=== PATIENT | female | born 1985 | race Caucasian/White ===

== ENCOUNTER → 2018-08-07 | Outpatient (CLI) | payer BC ==
[2018-08-07 09:48] LABS: ALANINE AMINOTRANSFERASE 12 U/L (0-55); ALBUMIN 4.5 GM/DL (3.2-4.5); ALKALINE PHOSPHATASE 91 U/L (40-136); BILIRUBIN,TOTAL 0.4 MG/DL (0.1-1.0); BUN/CREATININE RATIO 20; CALCIUM 9.3 MG/DL (8.5-10.1); CARBON DIOXIDE 25 MMOL/L (21-32); CHLORIDE 102 MMOL/L (98-107); GFR ESTIMATED > 60; GLUCOSE 96 MG/DL (70-105); POTASSIUM 4.3 MMOL/L (3.6-5.0); SODIUM 140 MMOL/L (135-145)
[2018-08-07 14:56] LABS: CHOLESTEROL 157 MG/DL (< 200); HDL CHOLESTEROL 44 MG/DL (40-60); TRIGLYCERIDES 95 MG/DL (<150); VLDL CHOLESTEROL 19 MG/DL (5-40)
== END ==
LOC: LAB FS 08:10
PROVIDERS: ATTEND Family Medicine
DX: Z00.00 Encounter for general adult medical examination without abnormal findings (principal)
CPT/HCPCS: 36415; 80053; 80061; 83036

== ENCOUNTER → 2019-12-04 | Outpatient (CLI) | payer BC ==
[2019-12-04 10:16] LABS: HEMATOCRIT 38 % (35-52); HEMOGLOBIN 12.3 G/DL (11.5-16.0); MEAN CORPUSCULAR HEMOGLOBIN 28 PG (25-34); MEAN CORPUSCULAR HGB CONC 33 G/DL (32-36); MEAN CORPUSCULAR VOLUME 86 FL (80-99); MEAN PLATELET VOLUME 9.5 FL (7.4-10.4); PLATELET COUNT 300 10^3/uL (130-400); WHITE BLOOD COUNT 9.2 10^3/uL (4.3-11.0)
[2019-12-04 10:17] LABS: BASOPHILS % (AUTO) 0 % (0-10); EOSINOPHILS % (AUTO) 0 % (0-10); LYMPHOCYTES # (AUTO) 1.6 X 10^3 (1.0-4.0); LYMPHOCYTES % (AUTO) 17 % (12-44); MONOCYTES # (AUTO) 0.4 X 10^3 (0.0-1.0); MONOCYTES % (AUTO) 4 % (0-12); NEUTROPHILS # (AUTO) 7.2 X 10^3 (1.8-7.8); NEUTROPHILS % (AUTO) 78 % (42-75)
== END ==
LOC: LAB FS 09:47
PROVIDERS: ATTEND Family Medicine
DX: Z34.81 Encounter for supervision of other normal pregnancy, first trimester (principal); Z3A.00 Weeks of gestation of pregnancy not specified
CPT/HCPCS: 36415; 80055; 86703; 86762; 87088

== ENCOUNTER → 2020-01-15 | Outpatient (CLI) | payer BC | LOC: LAB FS 16:42 | PROVIDERS: ATTEND Family Medicine | DX: Z34.92 Encounter for supervision of normal pregnancy, unspecified, second trimester (principal) | CPT/HCPCS: 36415; 82105; 84702; 86336 ==

== ENCOUNTER → 2020-02-17 | Outpatient (CLI) | payer BC ==
--- NOTE | 2020-02-18 08:40 | Diagnostic Imaging Report ---
INDICATION: survey. TECHNIQUE: Multiple real-time grayscale images were obtained over the gravid uterus. COMPARISON: None. FINDINGS: There are no prior studies available for comparison. There is a single live fetus in breech presentation. heart motion was noted and a rate of 149 BPM was recorded. There were no abnormalities identified. The growth parameters are fairly uniform. The placenta is anterior and there is no previa. The amniotic fluid volume is within normal limits. The ovaries were not well-visualized. Biometrical measurements are as follows: Biparietal 5.38 cm, age 22 weeks 3 days. Head circumference 19.80 cm, age 22 weeks 0 days. Abdominal circumference 17.01 cm, age 22 weeks 0 days. Femur length 3.99 cm, age 23 weeks 0 days. Sonographic estimate age: 22 weeks 3 days. Sonographic estimated date of delivery: 06/19/2020. Estimated Weight: 496 gm (+/- 73 gm). LMP percentile: 92%. heart rate: 149 beats per minute. number: 1 of 1. IMPRESSION: 1. There is a single live fetus approximately 22 weeks 3 days gestation +/- 2 weeks. EDC is 06/19/2020. 2. There were no abnormalities identified. 3. growth parameters are fairly uniform. Dictated by: Dictated on workstation # [id number]
== END ==
LOC: RAD FS 15:24
PROVIDERS: ATTEND Family Medicine
DX: Z34.92 Encounter for supervision of normal pregnancy, unspecified, second trimester (principal); Z3A.22 22 weeks gestation of pregnancy
CPT/HCPCS: 76805

== ENCOUNTER → 2020-04-06 | Outpatient (CLI) | payer BC ==
[2020-04-06 17:36] LABS: MEAN PLATELET VOLUME 9.2 FL (7.4-10.4)
== END ==
LOC: LAB FS 16:31
PROVIDERS: ATTEND Family Medicine
DX: Z34.92 Encounter for supervision of normal pregnancy, unspecified, second trimester (principal); Z3A.00 Weeks of gestation of pregnancy not specified
CPT/HCPCS: 36415; 82950; 85027; 86780

== ENCOUNTER 2020-06-23 19:03 | Inpatient (IN) | payer BC ==
[2020-06-23] VITALS (8 sets, daily range): BP systolic 133–181; BP diastolic 74–95
[~2020-06-23] VITALS: Ht 157.5 cm; Wt 121.2 kg
[2020-06-23] MEDS ORDERED: OMEP20TA33 PO (19:37)
[2020-06-23] MEDS ORDERED: PREN-102 PO (19:37)
[2020-06-23] MEDS ORDERED: MINERAL OIL CONCENTRATE 99.9% 15 ML UDC TOP PRN (19:45)
[2020-06-23] MEDS ORDERED: NS IV 500 ML 500 ML IV SCH (19:45)
[2020-06-23] MEDS: D5 LR IV SOLUTION 1,000 ML IV SCH (20:07)
[2020-06-23 20:22] LABS: BASOPHILS % (AUTO) 0 % (0-10); EOSINOPHILS % (AUTO) 0 % (0-10); HEMATOCRIT 35 % (35-52); HEMOGLOBIN 11.6 g/dL (11.5-16.0); LYMPHOCYTES # (AUTO) 1.7 10^3/uL (1.0-4.0); LYMPHOCYTES % (AUTO) 16 % (12-44); MEAN CORPUSCULAR HEMOGLOBIN 28 pg (25-34); MEAN CORPUSCULAR HGB CONC 33 g/dL (32-36); MEAN CORPUSCULAR VOLUME 85 fL (80-99); MEAN PLATELET VOLUME 10.7 fL (9.0-12.2); MONOCYTES # (AUTO) 0.5 10^3/uL (0.0-1.0); MONOCYTES % (AUTO) 5 % (0-12); NEUTROPHILS # (AUTO) 8.7 10^3/uL (1.8-7.8); NEUTROPHILS % (AUTO) 79 % (42-75); PLATELET COUNT 281 10^3/uL (130-400)
[2020-06-24] VITALS (53 sets, daily range): BP systolic 112–166; BP diastolic 58–94
[2020-06-24] MEDS ORDERED: HYDROmorphone 2 MG/ML VIAL (DILAUDID) ONE (00:55)
[2020-06-24] MEDS ORDERED: HYDROmorphone 2 MG/ML VIAL (DILAUDID) IVP ONE (01:15)
[2020-06-24] MEDS: D5 LR IV SOLUTION 1,000 ML IV SCH (03:39)
--- NOTE | 2020-06-24 08:27 | History & Physical-OB ---
OB - Chief Complaint & HPI Date/Time Date of Admission: Date of Admission: June 23, 2020 at 19:03 Date seen by a Provider: June 24, 2020 Time Seen by a Provider: 08:15 Chief Complaint/History OB-Reason for Admission/Chief: Induction of Labor Hx : 2 Hx Para: 1 Expected Date of Delivery: June 27, 2020 Gestational Age in Weeks: 39 Gestational Age in Days: 3 Admission Nurse Assessment Rev: Yes Other O pos Antibody neg RI RPR NR HBsAg NR HIV NR GC neg GBS neg Allergies and Home Medications Allergies Coded Allergies: No Known Drug Allergies (Unverified , 06/23/20) Home Medications Omeprazole Magnesium 20 Mg Tablet.dr, 40 MG PO DAILY, (Reported) Last Action: New Order Vits #93/Iron Fum/FA 1 Each Tablet, 1 EACH PO DAILY, (Reported) Last Action: New Order Patient Home Medication List Home Medication List Reviewed: Yes OB - History Hx of Present Care: Yes Ultrasounds: Normal mid trimester US Obstetrical Complications: None Medical Complications: None Patient Past Medical History n/a OB - Admission Exam Physical Exam Vitals: Vital Signs 06/24/20 06/24/20 03:40 06:10 Temp 36.0 Pulse 69 Resp 16 B/P (MAP) 156/83 (107) HEENT: NCAT Heart: Rhythm Normal Lungs: Clear Abdomen: Gravid Extremities: Normal Reflexes: Normal Cervical Dilatation: 1cm Effacement: 75% Station: -1 Membranes: Intact Heart Rate: 130's Accelerations: Accelerations Present Decelerations: No Decelerations Short Term Variability: Present Supervisor Yard Variability: Average (6-25) Contractions on Admission: 6-10 Minutes Apart Intensity: Mild Labs Laboratory Tests Test 06/23/20 20:00 Range/Units White Blood Count 11.0 4.3-11.0 10^3/uL Red Blood Count 4.16 3.80-5.11 10^6/uL Hemoglobin 11.6 11.5-16.0 g/dL Hematocrit 35 35-52 % Mean Corpuscular Volume 85 80-99 fL Mean Corpuscular Hemoglobin 28 25-34 pg Mean Corpuscular Hemoglobin Concent 33 32-36 g/dL Red Cell Distribution Width 14.0 10.0-14.5 % Platelet Count 281 130-400 10^3/uL Mean Platelet Volume 10.7 9.0-12.2 fL Immature Granulocyte % (Auto) 1 % Neutrophils (%) (Auto) 79 H 42-75 % Lymphocytes (%) (Auto) 16 12-44 % Monocytes (%) (Auto) 5 0-12 % Eosinophils (%) (Auto) 0 0-10 % Basophils (%) (Auto) 0 0-10 % Neutrophils # (Auto) 8.7 H 1.8-7.8 10^3/uL Lymphocytes # (Auto) 1.7 1.0-4.0 10^3/uL Monocytes # (Auto) 0.5 0.0-1.0 10^3/uL Eosinophils # (Auto) 0.0 0.0-0.3 10^3/uL Basophils # (Auto) 0.0 0.0-0.1 10^3/uL Immature Granulocyte # (Auto) 0.1 0.0-0.1 10^3/uL OB - Assessment/Plan/Diagnosis Assessment Assessment: induction of labor Admission Dx 34 yo @ 39 weeks Elective IOL GBS neg Admission Status: Inpatient Order (span 2 midnights) Reason for Inpatient Admission: Induction of labor at 39 weeks Plan Plan: Induction Induction Method: per Misoprostol Protocol NICOLE LEHMAN DO June 24, 2020 08:27
[2020-06-24] MEDS ORDERED: fentaNYL 2 mcg/ml BUPIVA 0.125 100 ML ONE (08:29)
[2020-06-24] MEDS ORDERED: OXYTOCIN PRE-MIX DRIP 500 ML IV ONE (08:37)
[2020-06-24] MEDS ORDERED: BUPIVACAINE 0.25% 30 ML (SENSORCAINE) VIAL ONE (08:43)
[2020-06-24] MEDS ORDERED: fentaNYL INJ 100 MCG/2 ML AMP ONE (08:43)
[2020-06-24] MEDS ORDERED: LIDOCAINE PF 2% 5 ML (XYLOCAINE) VIAL ONE (08:43)
[2020-06-24] MEDS ORDERED: OXYTOCIN PRE-MIX DRIP 500 ML IV SCH ×2 (08:45→16:15)
[2020-06-24] MEDS ORDERED: NALOXONE 0.4 MG/ML 1 ML (NARCAN) VIAL IV PRN (09:00)
[2020-06-24] MEDS ORDERED: EPIDURAL (fentaNYL 2 MCG/ML BUPIVA 0.125%)100 ML BAG EPI PRN (09:00)
[2020-06-24] MEDS ORDERED: LACTATED RINGERS 1,000 ML IV SCH (09:00)
[2020-06-24] MEDS ORDERED: ONDANSETRON 4 MG/2 ML (SDV) Z0FRAN IV PRN (09:00)
[2020-06-24] MEDS ORDERED: diphenhydrAMINE 50 MG/ML INJ (BENADRYL) IV PRN (09:00)
[2020-06-24 11:40] LABS: BILIRUBIN,URINE NEGATIVE (NEGATIVE); CLARITY,URINE TURBID; COLOR,URINE YELLOW; GLUCOSE, URINE (UA) NEGATIVE (NEGATIVE); KETONES,URINE TRACE (NEGATIVE); LEUKOCYTE ESTERASE ,URINE TRACE (NEGATIVE); NITRITE,URINE NEGATIVE (NEGATIVE); PROTEIN,URINE NEGATIVE (NEGATIVE); WBC,URINE RARE /HPF
[2020-06-24 11:41] LABS: AMORPHOUS SEDIMENT,UR LARGE AMOR URATES /LPF; BACTERIA,URINE NEGATIVE /HPF
[2020-06-24] MEDS ORDERED: LIDOCAINE/EPI 2% 1:200,00 (XYLOCAINE) 20 ML VIAL ONE (14:47)
[2020-06-24] MEDS ORDERED: HYDROcodone/APAP 5 MG/325 MG (LORTAB) TAB PO PRN (16:15)
[2020-06-24] MEDS ORDERED: WITCH HAZEL(TUCKS) 40 EA JAR TOP PRN (16:15)
[2020-06-24] MEDS ORDERED: TETANUS,DIPTH,PERTUSS P/F (BOOSTRIX) 0.5 ML VIAL IM ONE (16:15)
[2020-06-24] MEDS ORDERED: BENZOCAINE/MENTHOL (DERMOPLAST) 56 ML CAN TP PRN (16:15)
[2020-06-24] MEDS ORDERED: MEASLES,MUMPS,RUBELLA 1 EA INJ SQ ONE (16:15)
[2020-06-24] MEDS ORDERED: DIBUCAINE 1% OINTMENT 30 GM TUBE TOP PRN (16:15)
--- NOTE | 2020-06-24 16:21 | OB Labor & Delivery Record ---
L&D History Date of Service Date of Service: June 24, 2020 History Expected Date of Delivery: June 27, 2020 Gestational Age in Weeks: 39 Hx : 2 Hx Para: 1 Complications Events: Routine care Operative Indications (Cesarea: N/A-Vaginal Delivery Intrapartal Events: None L&D Stage1 Stage One Onset of Labor - Date: June 24, 2020 Monitors and Tracing Monitor Mode: External Heart Rate: 130 Monitor Accelerations: Uniform Monitor Decelerations: None Station: 0 Ripening Room Hand Variability: Average (6-10) Short Term Variability: Present Presentation: Vertex Vital Signs VS - Last 72 Hours, by Label 06/23/20 06/23/20 06/23/20 06/23/20 19:30 19:30 19:50 20:00 Temp 37.0 37.0 Pulse 112 112 106 111 Resp 18 18 B/P (MAP) 181/95 (123) 157/85 (109) 133/89 (104) Pulse Ox 97 97 O2 Delivery Room Air Room Air 06/23/20 06/23/20 06/23/20 06/23/20 20:25 20:50 21:30 22:30 Pulse 97 97 80 81 Resp 16 16 16 B/P (MAP) 146/75 (98) 147/84 (105) 139/74 (95) 139/84 (102) 06/23/20 06/24/20 06/24/20 06/24/20 23:30 00:30 01:30 02:30 Temp 36.1 Pulse 75 80 88 77 Resp 16 16 16 16 B/P (MAP) 139/84 (102) 136/87 (103) 164/93 (116) 145/80 (101) 06/24/20 06/24/20 06/24/20 06/24/20 03:35 03:40 04:00 04:10 Temp 36.0 Pulse 80 77 69 75 Resp 16 16 16 16 B/P (MAP) 161/89 (113) 162/81 (108) 157/92 (113) 151/86 (107) 06/24/20 06/24/20 06/24/20 06/24/20 05:10 06:10 07:10 08:15 Pulse 75 69 73 67 Resp 16 16 18 18 B/P (MAP) 140/81 (100) 156/83 (107) 156/78 (104) 166/84 (111) 06/24/20 06/24/20 06/24/20 06/24/20 08:55 09:00 09:05 09:10 Pulse 104 85 89 81 Resp 18 18 18 18 B/P (MAP) 131/84 (100) 135/76 (95) 126/70 (88) 135/94 (108) Pulse Ox 98 100 98 100 06/24/20 06/24/20 06/24/20 06/24/20 09:15 09:20 09:23 09:25 Temp 36.0 Pulse 97 84 108 111 Resp 18 18 18 18 B/P (MAP) 133/69 (90) 143/69 (93) 139/77 (97) 123/72 (89) Pulse Ox 100 98 98 98 06/24/20 06/24/20 06/24/20 06/24/20 09:28 09:30 09:35 09:45 Pulse 86 90 90 86 Resp 18 18 18 18 B/P (MAP) 134/74 (94) 132/74 (93) 137/74 (95) Pulse Ox 98 99 100 98 06/24/20 06/24/20 06/24/20 06/24/20 09:50 09:55 10:00 10:15 Pulse 83 81 75 86 Resp 18 18 18 18 B/P (MAP) 136/72 (93) 140/70 (93) 141/65 (90) 132/71 (91) Pulse Ox 100 Rupture of Membranes Spontaneous Ruture of Membrane: No Amniotic Membrane Rupture Time: 08 Amniotic Membrane Fluid Desc.: Clear Vaginal Bleeding Description: Normal Show Induction/Anesthesia Epidural Cath Placement - Time: 09 Progress/Notes Patient admitted for elective IOL, cytotec given last night. AROM this am performed, and pitocin augmentation. Epidural received and she progressed to complete and +2 station with max dose of 6 mu/min reached. L&D Stage2 Monitors and Tracing Monitor Mode: External Heart Rate: 130 Monitor Accelerations: Uniform Monitor Decelerations: Early Ripening Room Hand Variability: Average (6-10) Short Term Variability: Present Position: Right Occiput Anterior Presentation: Vertex Cord Descript/Complications Cord Vessel Description: 3 Vessels Delivery Type Delivery Method: Spontaneous Vaginal Anterior Shoulder: Left Episiotomy/Perineal Laceration Laceraction(s)/Extensions: Yes Episiotomy Description: Perineal Extension/lac, 2nd degree Location Modifier: Medial Degree (describe repair) 2nd degree perineal laceration repaired using 3-0 rapide in usual fashion Condition of Infant Delivery 1 minute Comment: 8 5 minute Comment: 9 Notes live male infant weight pending. Condition of Condition of Infant: Living Exam: No Observed Abnormalities Resuscitation Resuscitation: N/A - Spontaneous Resp L&D Stage3 Stage Three Stage III Date: June 24, 2020 Pictocin Pitocin Administration mu/min: 6 Pitocin ml/hr: 6 Pitocin Administration Comment: 30 mu wide open after delivery of placenta Placenta Delivery Placenta Delivery: Spontaneous Delivery Summary Summary Estimated blood loss (mL): 200 Attending at delivery: Nicole Lehman DO Condition of Delivery Examined: Cervix Examined, Uterus Explored Post Hemorrhage: No Condition of Mother stable Condition of (s) stable NICOLE LEHMAN DO June 24, 2020 4:21 pm
[2020-06-24] MEDS: IBUPROFEN 600 MG (MOTRIN) TAB PO SCH ×2 (17:36→23:49)
[2020-06-24] MEDS: DOCUSATE SODIUM 100 MG (COLACE) CAP PO SCH (21:24)
[2020-06-24] MEDS ORDERED: CATHETER FLUSH 10 ML SYR IV SCH (22:00)
[2020-06-25 02:30] VITALS: BP 138/65
[2020-06-25 05:41] LABS: BASOPHILS % (AUTO) 0 % (0-10); EOSINOPHILS % (AUTO) 0 % (0-10); HEMATOCRIT 33 % (35-52); HEMOGLOBIN 10.9 g/dL (11.5-16.0); LYMPHOCYTES # (AUTO) 1.5 10^3/uL (1.0-4.0); LYMPHOCYTES % (AUTO) 10 % (12-44); MEAN CORPUSCULAR HEMOGLOBIN 28 pg (25-34); MEAN CORPUSCULAR HGB CONC 33 g/dL (32-36); MEAN CORPUSCULAR VOLUME 86 fL (80-99); MEAN PLATELET VOLUME 10.6 fL (9.0-12.2); MONOCYTES # (AUTO) 0.6 10^3/uL (0.0-1.0); MONOCYTES % (AUTO) 4 % (0-12); NEUTROPHILS # (AUTO) 12.9 10^3/uL (1.8-7.8); NEUTROPHILS % (AUTO) 85 % (42-75); PLATELET COUNT 215 10^3/uL (130-400); WHITE BLOOD COUNT 15.2 10^3/uL (4.3-11.0)
[2020-06-25 06:20] LABS: ANISOCYTOSIS SLIGHT; BAND NEUTROPHILS 4 %; HYPOCHROMASIA SLIGHT; LYMPHOCYTES % (MANUAL) 10 %; MICROCYTOSIS SLIGHT; MONOCYTES % (MANUAL) 3 %; NEUTROPHILS % (MANUAL) 80 %; REACTIVE LYMPHOCYTES 3 %
[2020-06-25] MEDS: IBUPROFEN 600 MG (MOTRIN) TAB PO SCH ×2 (06:32→12:10)
[2020-06-25 06:48] VITALS: BP 123/59
[2020-06-25] MEDS ORDERED: PRENATAL VITAMIN 1 EA TAB PO SCH (07:00)
[2020-06-25] MEDS ORDERED: FERROUS SULF 325 MG (IRON) TAB PO SCH (08:00)
--- NOTE | 2020-06-25 08:24 | Postpartum Progress Note ---
Note Note Day # 1 Subjective: Patient is without complaints. Ambulating, voiding. Tolerating a regular diet without nausea or vomiting. Normal lochia. Pain is well controlled with oral pain medications. Objective: Physical Exam: General - Alert and oriented, no apparent distress Abdomen - Soft, appropriately tender to palpation, non-distended, fundus firm at umbilicus Extremities - no edema, negative Rena's bilaterally Assessment: PPD 1 NVD Acute blood loss anemia Plan: Routine care. Encourage breast feeding. Encourage ambulation. Ferrous sulfate supplementation. Plan for discharge today Vitals - Labs Vital Signs - I&O Vital Signs Date Time Temp Pulse Resp B/P (MAP) Pulse Ox O2 Delivery O2 Flow Rate FiO2 06/25/20 06:48 36.6 89 20 123/59 (80) 97 Room Air 06/25/20 02:30 36.3 86 20 138/65 (89) 97 Room Air 06/24/20 21:20 36.0 82 18 122/70 (87) 97 Room Air 06/24/20 17:08 37.0 97 18 153/80 (104) 06/24/20 16:38 91 18 147/69 (95) 06/24/20 16:24 101 18 145/73 (97) 06/24/20 16:08 93 18 140/63 (88) 06/24/20 15:53 100 18 136/63 (87) 06/24/20 15:38 37.0 18 137/91 (106) 06/24/20 15:27 104 18 142/87 (105) 06/24/20 15:15 06/24/20 15:00 93 18 156/76 (102) 06/24/20 14:45 103 18 140/85 (103) 06/24/20 14:30 99 18 154/81 (105) 06/24/20 14:15 93 18 149/82 (104) 06/24/20 14:00 106 18 149/83 (105) 06/24/20 13:45 104 18 140/76 (97) 06/24/20 13:30 90 18 150/71 (97) 06/24/20 13:15 87 18 141/68 (92) 06/24/20 13:00 83 18 149/74 (99) 06/24/20 12:45 83 18 144/74 (97) 06/24/20 12:30 36.4 80 18 148/71 (96) 06/24/20 12:15 93 18 129/59 (82) 06/24/20 12:00 88 18 112/61 (78) 06/24/20 11:45 83 18 116/62 (80) 06/24/20 11:30 90 18 141/69 (93) 06/24/20 11:15 82 18 114/66 (82) 06/24/20 11:00 81 18 124/58 (80) 06/24/20 10:45 103 18 144/70 (94) 06/24/20 10:30 80 18 139/68 (91) 06/24/20 10:15 86 18 132/71 (91) 06/24/20 10:00 75 18 141/65 (90) 06/24/20 09:55 81 18 140/70 (93) 06/24/20 09:50 83 18 136/72 (93) 100 06/24/20 09:45 86 18 98 06/24/20 09:35 90 18 137/74 (95) 100 06/24/20 09:30 90 18 132/74 (93) 99 06/24/20 09:28 86 18 134/74 (94) 98 06/24/20 09:25 111 18 123/72 (89) 98 06/24/20 09:23 108 18 139/77 (97) 98 06/24/20 09:20 84 18 143/69 (93) 98 06/24/20 09:15 36.0 97 18 133/69 (90) 100 06/24/20 09:10 81 18 135/94 (108) 100 06/24/20 09:05 89 18 126/70 (88) 98 06/24/20 09:00 85 18 135/76 (95) 100 06/24/20 08:55 104 18 131/84 (100) 98 I & O 06/25/20 07:00 Intake Total 1550 ml Balance 1550 ml Labs Laboratory Tests 06/25/20 05:10: White Blood Count 15.2H, Red Blood Count 3.89, Hemoglobin 10.9L, Hematocrit 33L, Mean Corpuscular Volume 86, Mean Corpuscular Hemoglobin 28, Mean Corpuscular Hemoglobin Concent 33, Red Cell Distribution Width 13.9, Platelet Count 215, Mean Platelet Volume 10.6, Immature Granulocyte % (Auto) 1, Neutrophils (%) (Auto) 85H, Lymphocytes (%) (Auto) 10L, Monocytes (%) (Auto) 4, Eosinophils (%) (Auto) 0, Basophils (%) (Auto) 0, Neutrophils # (Auto) 12.9H, Lymphocytes # (Auto) 1.5, Monocytes # (Auto) 0.6, Eosinophils # (Auto) 0.0, Basophils # (Auto) 0.0, Immature Granulocyte # (Auto) 0.1, Neutrophils % (Manual) 80, Lymphocytes % (Manual) 10, Monocytes % (Manual) 3, Band Neutrophils 4, Reactive Lymphocytes 3, Hypochromasia SLIGHT, Anisocytosis SLIGHT, Microcytosis SLIGHT NICOLE LEHMAN DO June 25, 2020 08:24
--- NOTE | 2020-06-25 08:25 | Discharge Inst-Women's Service ---
Discharge Inst-Women's Serv Depart Medication/Instructions New, Converted or Re-Newed RX: RX on Chart Final Diagnosis PPD 1 NVD Problems Reviewed?: Yes Consults/Follow Up Additional Follow Up: Yes Orders/Referrals Dr. Lehman in 6 weeks Activity Activity: Activity as Tolerated Driving Instructions: No Driving for 1 Week NO SMOKING: NO SMOKING Nothing Inside Vagina: No Douching, No [place], No Tampons Diet Discharge Diet: No Restrictions Symptoms to Report to : Bleeding Excessive, Pain Increased, Fever Over 101 Degrees F, Vaginal Bleeding Increase, Questions/Concerns For Any Problems or Questions: Contact Your Physician NICOLE LEHMAN DO June 25, 2020 08:25
[2020-06-25] MEDS ORDERED: IBUP-844 PO (08:27)
[2020-06-25] MEDS ORDERED: DCS100C PO (08:27)
[2020-06-25] MEDS ORDERED: FERR325T24 PO (08:27)
[2020-06-25] MEDS ORDERED: DIBU30OI TOP (08:27)
[2020-06-25] MEDS ORDERED: BENZ78AE5 TP (08:27)
[2020-06-25] MEDS ORDERED: ACHD5005 PO (08:27)
[2020-06-25 09:29] VITALS: BP 151/74
[2020-06-25] MEDS: DOCUSATE SODIUM 100 MG (COLACE) CAP PO SCH (09:31)
[2020-06-25 12:10] VITALS: BP 121/58
--- NOTE | 2020-06-25 13:11 | Anesthesia-Regional Post-Op ---
Regional Patient Condition Mental Status: Alert, Oriented x3 Circulation: Same as Pre-Op Headache: Absent Sensation: Full Recovery Motor Block: Absent Post Op Complications Complications None Follow Up Care/Instructions Patient Instructions None needed. Anesthesia/Patient Condition Patient is doing well, no complaints, stable vital signs, no apparent adverse anesthesia problems. No complications reported per nursing. KAREEM LOYA CRNA June 25, 2020 13:11
== END 2020-06-25 17:25 | disposition home or self-care (01) | DRG 806 ==
LOC: LDRP 19:03
PROVIDERS: ADMIT Obstetrics & Gynecology; ATTEND Obstetrics & Gynecology
PROC: 3E0D7GC Introduction of Other Therapeutic Substance into Mouth and Pharynx, Via Natural or Artificial Opening (ICD-10-PCS; 2020-06-23)
PROC: 10E0XZZ Delivery of Products of Conception, External Approach (ICD-10-PCS; principal; 2020-06-24)
PROC: 0KQM0ZZ Repair Perineum Muscle, Open Approach (ICD-10-PCS; 2020-06-24)
DX: O70.1 Second degree perineal laceration during delivery (principal); D62 Acute posthemorrhagic anemia; Z37.0 Single live birth; O90.81 Anemia of the puerperium; Z3A.39 39 weeks gestation of pregnancy
CPT/HCPCS: 36415; 81000; 85007; 85025; 85027; 86780; 86850; 86900; 86901

== ENCOUNTER → 2020-07-31 | Outpatient (CLI) | payer BC ==
[~2020-07-31] MED LIST: ACHD5005 PO; BENZ78AE5 TP; DCS100C PO; DIBU30OI TOP; FERR325T24 PO; IBUP-844 PO; OMEP20TA33 PO; PREN-102 PO
[2020-07-31 11:24] LABS: ALANINE AMINOTRANSFERASE 25 U/L (0-55); ALBUMIN 4.3 GM/DL (3.2-4.5); ALKALINE PHOSPHATASE 104 U/L (40-136); BILIRUBIN,TOTAL 0.4 MG/DL (0.1-1.0); BUN/CREATININE RATIO 16; CALCIUM 9.3 MG/DL (8.5-10.1); CARBON DIOXIDE 24 MMOL/L (21-32); CHLORIDE 104 MMOL/L (98-107); CREATININE SERUM 0.97 MG/DL (0.60-1.30); GFR ESTIMATED > 60; GLUCOSE 92 MG/DL (70-105); POTASSIUM 4.3 MMOL/L (3.6-5.0); SODIUM 139 MMOL/L (135-145); TOTAL PROTEIN 7.2 GM/DL (6.4-8.2)
[2020-07-31 15:09] LABS: CHOLESTEROL 184 MG/DL (< 200); HDL CHOLESTEROL 62 MG/DL (40-60); TRIGLYCERIDES 127 MG/DL (<150); VLDL CHOLESTEROL 25 MG/DL (5-40)
== END ==
LOC: LAB FS 09:43
PROVIDERS: ATTEND Family Medicine
DX: Z00.00 Encounter for general adult medical examination without abnormal findings (principal)
CPT/HCPCS: 36415; 80053; 80061; 84443

== ENCOUNTER → 2020-08-11 | Outpatient (CLI) | payer BC | LOC: LAB FS 11:11 | PROVIDERS: ATTEND Family Medicine | DX: Z13.1 Encounter for screening for diabetes mellitus (principal) | CPT/HCPCS: 36415; 83036 ==

== ENCOUNTER → 2021-03-23 | Outpatient (CLI) | payer BC ==
[~2021-03-23] MED LIST changes: -DCS100C PO; +DOCU-239 PO
[2021-03-23 07:56] LABS: POTASSIUM 4.5 MMOL/L (3.6-5.0)
[2021-03-23 07:57] LABS: ALBUMIN 4.5 GM/DL (3.2-4.5); BILIRUBIN,TOTAL 0.3 MG/DL (0.1-1.0); CALCIUM 9.5 MG/DL (8.5-10.1); CREATININE SERUM 0.89 MG/DL (0.60-1.30); TOTAL PROTEIN 7.8 GM/DL (6.4-8.2)
[2021-03-23 15:09] LABS: FREE T4 (FREE THYROXINE) 0.87 NG/DL (0.70-1.48)
== END ==
LOC: LAB FS 07:17
PROVIDERS: ATTEND Registered Nurse Emergency
DX: Z00.01 Encounter for general adult medical examination with abnormal findings (principal); F32.9 Major depressive disorder, single episode, unspecified; R53.83 Other fatigue
CPT/HCPCS: 36415; 80053; 80061; 82306; 82607; 84439; 84443

== ENCOUNTER → 2021-09-02 | Outpatient (CLI) | payer BC | LOC: LAB FS 07:03 | PROVIDERS: ATTEND Family Medicine | DX: Z13.1 Encounter for screening for diabetes mellitus (principal) | CPT/HCPCS: 36415; 83036 ==